=== PATIENT | female | born 1960 | race Caucasian/White ===

== ENCOUNTER → 2023-04-26 | Outpatient (CLI) | payer OTHER | LOC: LAB SHORT 12:46 → LAB 12:46 | DX: R50.9 Fever, unspecified (principal); R53.81 Other malaise | CPT/HCPCS: 85651 ==

== ENCOUNTER 2023-12-26 13:19 | Day surgery (SDC) | payer MEDICARE ==
[~2023-12-26] VITALS: Ht 162.6 cm; Wt 49.0 kg
[~2023-12-26 13:19] MED LIST: Atropine Sulfate 0.1 MG/ML 10ML SYR ONE; Glycopyrrolate 0.2 MG/ML 1MLVIAL ONE; Lactated Ringer's 1,000 ML IV ONE; Lidocaine 2% 5 ML SDV ONE; Lidocaine HCl/Pf 1% 5 ML VIAL ONE; Methylene Blue 1% 100 MG/10 ML VIAL ONE; Ondansetron HCl 2 MG / ML 2ML Vial ONE; ePHEDrine Sulfate 50 MG/ML 1ML Injection ONE; propofoL 50 ML IV ONE
[2023-12-26] MEDS ORDERED: Vitamin C100 MG (14:16)
[2023-12-26] MEDS ORDERED: CALCA500S6 (14:17)
[2023-12-26] MEDS ORDERED: EUTHYROX88 MCG (14:17)
[2023-12-26] MEDS ORDERED: Mag-Tab Sr84 MG (14:17)
[2023-12-26] MEDS ORDERED: ZINC15 (14:18)
[2023-12-26] MEDS ORDERED: Estrace Vagin42.5 GM (14:18)
[2023-12-26] MEDS ORDERED: FISH OIL 1,0001 EA10 (14:18)
[2023-12-26] MEDS ORDERED: Lactated Ringer's 1,000 ML IV ONE (14:33)
[2023-12-26] MEDS ORDERED: Lidocaine HCl 2% Jelly 120MG/6ML SYR (20MG PER ML) ONE (15:21)
[2023-12-26 15:52] VITALS: BP 112/72
== END 2023-12-26 16:01 | disposition home or self-care (01) ==
LOC: ORSCSDS 13:19
PROVIDERS: Surgery
PROC: 0DJD8ZZ Inspection of Lower Intestinal Tract, Via Natural or Artificial Opening Endoscopic (ICD-10-PCS; principal; 2023-12-26 14:45)
DX: Z12.11 Encounter for screening for malignant neoplasm of colon (principal); K57.30 Diverticulosis of large intestine without perforation or abscess without bleeding; Z87.891 Personal history of nicotine dependence; Z79.899 Other long term (current) drug therapy
CPT/HCPCS: A9270; J0461; J2001; J2405; J2704; J7120; Q9968